=== PATIENT | female | born 1945 | race Two or more races ===

== ENCOUNTER 2016-10-03 20:51 | Inpatient (IN) | payer MEDICARE, OTHER ==
[~2016-10-03] VITALS: Ht 160 cm; Wt 81.2 kg
[~2016-10-03 20:51] MED LIST: AMLO5TAB2 PO; ASPI81TA2 PO; ATOR20TA PO; LORA2TAB PO; METO25TA6 PO
--- NOTE | 2016-10-03 20:55 | NUR ---
To bed 6 a 71 yo female bib family with c/o chest pressure x1 week. Per patient she was seen by a state farm agent and was prescribed with verapamil. However, upon taking this med home, patient has "feeling of anxiety," and palpitation, thus prompting patient to come to er. Upon arrival to er, patient is aaox4, denies chest pressure at this time. tele monitoring presents nsr with pvc's in bigeminy/trigeminy, couplet and runs of pvc's. Skin is warm and dry. Nondiaphoretic. Initiated comfort measures. Gowned. Awaiting for er md hanson.
--- NOTE | 2016-10-03 21:10 | NUR ---
Director Agency & Strategic Partnerships Jonoii at bedside for eval.
--- NOTE | 2016-10-03 21:18 | NUR ---
Carla tillman in [facility] - 10/03/16 at 2118 by JOHANNA cinetechnician at bedside.
[2016-10-03 21:29] LABS: BASOPHILS # (AUTO) 0.1 /CMM (0.0-0.2); EOSINOPHILS # (AUTO) 0.2 /CMM (0.0-0.7); EOSINOPHILS % (AUTO) 1.5 % (0.0-6.0); HEMATOCRIT 45 % (33-45); HEMOGLOBIN 15.4 g/dL (11.5-14.8); LYMPHOCYTES # (AUTO) 3.7 /CMM (0.8-4.8); LYMPHOCYTES % (AUTO) 27.8 % (20.0-44.0); MEAN CORPUSCULAR HEMOGLOBIN 30 PG (26.0-33.0); MEAN CORPUSCULAR HGB CONC 34 g/dl (31.0-36.0); MEAN CORPUSCULAR VOLUME 89 fL (82-100); MONOCYTES % (AUTO) 7.9 % (2.0-12.0); NEUTROPHILS # (AUTO) 8.2 /CMM (1.8-8.9); NEUTROPHILS % (AUTO) 61.8 % (43.0-81.0); PLATELET COUNT (AUTO) 187 /CMM (150-450); RDW COEFFICIENT OF VARIATION 12.4 (11.5-15.0); WHITE BLOOD COUNT (AUTO) 13.2 K/uL (4.3-11.0)
--- NOTE | 2016-10-03 21:29 | NUR ---
started a saline lock on the right ac g 20, blood drawn and sent to lab.
[2016-10-03 21:37] LABS: CALCIUM, SERUM 9.3 mg/dL (8.5-10.1); CARBON DIOXIDE 26 mmol/L (21-32); CHLORIDE 103 mmol/L (98-107); CREATININE 1.1 mg/dL (0.6-1.3); GLUCOSE 122 mg/dL (74-106); POTASSIUM 3.9 mmol/L (3.5-5.1); SODIUM SERUM 140 mmol/L (136-145); UREA NITROGEN, BLOOD 20 mg/dL (7-18)
[2016-10-03 21:40] LABS: INR 1.06 (0.87-1.13)
[2016-10-03 21:45] LABS: TROPONIN I < 0.017 ng/mL (0.00-0.056)
[2016-10-03 21:49] LABS: B-TYPE NATRIURETIC PEPTIDE 339 PG/ML (0-125)
[2016-10-03 22:15] VITALS: BP 146/65
--- NOTE | 2016-10-03 22:21 | NUR ---
EPIC PAGED, DR.SIMONA Clemente DRIVING SCHOOL INSTRUCTOR
--- NOTE | 2016-10-03 22:28 | NUR ---
CARDIOLOGY PAGED, ELECTRICAL AND INSTRUMENTATION MANAGER
--- NOTE | 2016-10-03 22:39 | NUR ---
CALLED NURSING SUP. FOR TELE BED
--- NOTE | 2016-10-03 22:58 | NUR ---
Report given to Jose LOZADA for yessenia.
[2016-10-03] MEDS ORDERED: ACETAMINOPHEN 325 MG TABLET PO PRN (23:00)
[2016-10-03] MEDS ORDERED: MORPHINE SULFATE INJ 2 MG/ML DISP.SYRIN IV PRN ×2 (23:00)
[2016-10-03] MEDS ORDERED: DOCUSATE SODIUM 100 MG CAPSULE PO PRN (23:00)
[2016-10-03] MEDS ORDERED: LORAZEPAM 1 MG TABLET PO PRN (23:00)
--- NOTE | 2016-10-03 23:18 | NUR ---
Transported to malu bed 111-1 via als protocol without incident noted.
[2016-10-03] MEDS ORDERED: METOPROLOL TARTRATE 50 MG TABLET ONE (23:25)
--- NOTE | 2016-10-03 23:40 | NUR ---
RN NOTES RECEIVED PX FROM ER VIA GURNEY, THEN TRANSFERRED TO BED, AWAKE, ALERT, ORIENTED X 3, AMBULATORY WITH STEADY GAIT, DAUGHTER AT BEDSIDE; HOOKED PX TO HEART MONITOR, MULTIPLE PVC'S NOTED WITH MULTIPLE CONTINUOUS RUNS OF 4-7 PVC'S; VITAL SIGNS WERE STABLE; PX DENIED PAIN, CHEST PAIN, SOB, DIZZINESS, PALPITATIONS, NO DIAPHORESIS, NO N/V; PIV ON RIGHT AC PATENT AND INTACT; SKIN INTACT; BELONGINGS GIVEN TO DAUGHTER. CALLED DR. WORTHINGTON AND INFORMED OF MULTIPLE EPISODES OF CONTINUOUS PVC'S MANY 4-7, METOPROLOL GIVEN PO. DISCUSSED PLAN OF CARE; PX AND DAUGHTER REFUSED PNEUMONIA VACCINE AND DVT PUMPS DESPITE HEALTH TEACHING/EDUCATION.
[2016-10-03] MEDS: METOPROLOL TARTRATE 50 MG TABLET PO SCH (23:44)
[2016-10-04] VITALS (7 sets, daily range): BP systolic 126–153; BP diastolic 56–72
[2016-10-04] MEDS ORDERED: ENOXAPARIN SODIUM 30 MG/0.3 ML DISP.SYRIN SQ SCH (01:00)
--- NOTE | 2016-10-04 04:30 | NUR ---
RN NOTES PX CONDITION UNCHANGED, NOTICED THAT WHEN PATIENT GETS UP AND WALKS TO THE BATHROOM, NUMBER OF PVC'S INCREASES, PLACED A BEDSIDE COMMODE AND INSTRUCTED TO AVOID STRAINING DURING BOWEL MOVEMENT; DESPITE RUNS OF PVC'S IN MULTIPLES OF 5-7, PX DENIED CHEST PAIN, SOB, N/V, DIZZINESS. HR 47-60 WITH STABLE BP.
--- NOTE | 2016-10-04 06:21 | NUR ---
RN NOTES CONDITION AND NEURO STATUS UNCHANGED; HR NOW 64 STILL WITH PVC'S BUT LESS EPISODES OF RUNS PVC'S >3'S; DENIED PAIN, CHEST PAIN, SOB, DIZZINESS; EARLY AM CARE PROVIDED; NO SKIN BREAKDOWN; PIV REMAINED INTACT AND PATENT. WILL ENDORSE TO NEXT RN.
[2016-10-04 06:36] LABS: BASOPHILS # (AUTO) 0.1 /CMM (0.0-0.2); BASOPHILS % (AUTO) 0.7 % (0.0-2.0); EOSINOPHILS # (AUTO) 0.2 /CMM (0.0-0.7); EOSINOPHILS % (AUTO) 1.7 % (0.0-6.0); HEMATOCRIT 44 % (33-45); HEMOGLOBIN 14.5 g/dL (11.5-14.8); LYMPHOCYTES # (AUTO) 3.1 /CMM (0.8-4.8); LYMPHOCYTES % (AUTO) 32.8 % (20.0-44.0); MEAN CORPUSCULAR HEMOGLOBIN 29 PG (26.0-33.0); MEAN CORPUSCULAR HGB CONC 33 g/dl (31.0-36.0); MEAN CORPUSCULAR VOLUME 89 fL (82-100); MONOCYTES # (AUTO) 0.7 /CMM (0.1-1.30); MONOCYTES % (AUTO) 7.9 % (2.0-12.0); NEUTROPHILS # (AUTO) 5.4 /CMM (1.8-8.9); NEUTROPHILS % (AUTO) 56.9 % (43.0-81.0); PLATELET COUNT (AUTO) 185 /CMM (150-450); RDW COEFFICIENT OF VARIATION 13.3 (11.5-15.0); RED BLOOD CELL COUNT(AUTO) 4.95 MIL/uL (4.0-5.2); WHITE BLOOD COUNT (AUTO) 9.4 K/uL (4.3-11.0)
[2016-10-04 06:46] LABS: INR 1.05 (0.87-1.13); PROTHROMBIN TIME 11.3 SECS (9.5-12.7)
--- NOTE | 2016-10-04 07:00 | NUR ---
Received pt in bed,no s/s of distress breathing even and unlabored.no c/o pain.breathing on 2lpm via nasal cannula.on tele monitoring s.b 55.i.v site cdi and patent. safety measures in place.bed in low and locked position.will continue to monitor for changes.
[2016-10-04 07:03] LABS: CALCIUM, SERUM 8.8 mg/dL (8.5-10.1); POTASSIUM 3.8 mmol/L (3.5-5.1)
[2016-10-04 07:19] LABS: PHOSPHORUS 4.4 mg/dL (2.5-4.9)
[2016-10-04 07:55] LABS: CANNABINOID, URINE NEGATIVE (NEGATIVE); PHENCYCLIDINE SCREEN,URINE NEGATIVE (NEGATIVE)
[2016-10-04 08:10] LABS: APPEARANCE,URINE CLEAR (CLEAR); BILIRUBIN,URINE NEGATIVE (NEGATIVE); BLOOD, URINE NEGATIVE Ery/uL (NEGATIVE); COLOR,URINE YELLOW (YELLOW); KETONES,URINE NEGATIVE (NEGATIVE); LEUKOCYTE ESTERASE ,URINE NEGATIVE (NEGATIVE); NITRITE, URINE NEGATIVE (NEGATIVE); PROTEIN,URINE NEGATIVE (NEGATIVE); UGLUCOSE NEGATIVE (NEGATIVE); UROBILINOGEN,URINE 0.2 EU/dL (0.2)
[2016-10-04] MEDS: METOPROLOL TARTRATE 50 MG TABLET PO SCH ×2 (08:59→16:06)
[2016-10-04] MEDS: ATORVASTATIN 10 MG TABLET PO SCH (08:59)
[2016-10-04] MEDS: ASPIRIN 81 MG TAB.CHEW PO SCH (08:59)
[2016-10-04] MEDS ORDERED: AMLODIPINE BESYLATE 5 MG TABLET PO SCH (09:00)
[2016-10-04] MEDS ORDERED: POTASSIUM CHLORIDE 20 MEQ TAB.PRT.SR PO ONE (14:21)
[2016-10-04] MEDS ORDERED: Magnesium 1GM/D5W 100ML PREMIX 100 ML IV SCH (14:22)
[2016-10-04] MEDS ORDERED: SECONDARY IV SET 1 EA INFUS.SET MC ONE (15:53)
[2016-10-04] MEDS ORDERED: IV SET PRIMARY PUMP SET 1 EA INFUS.SET MC ONE ×2 (16:00→23:58)
[2016-10-04] MEDS: VERAPAMIL HCL 80 MG TABLET PO SCH ×2 (16:05→21:40)
--- NOTE | 2016-10-04 19:29 | NUR ---
pt in stable condition. family present at bedside.no s/s of distress.all m.d orders noted and carried out.safety measures in place.
--- NOTE | 2016-10-04 19:30 | NUR ---
PROPELLER LAYOUT WORKER PT IN BED. FAMILY AT BEDSIDE. PT IS A/A/O X4. PT CONTINUES TO HAVE MULTIPLE PVC'S, ASYMPTOMATIC. LUNG SOUNDS CLEAR. BOWEL SOUNDS PRESENT. IV PATENT AND INTACT. PER MD PT TO REMAIN IN BED MOST OF THE TIME. INSTRUCTED PT TO CALL FOR ASSISTANCE AT ALL TIMES. BED IN LOW LOCKED POSITION. CALL LIGHT WITHIN REACH. WILL CONTINUE TO MONITOR.
[2016-10-04] MEDS ORDERED: ENOXAPARIN SODIUM 40 MG/0.4 ML DISP.SYRIN SQ SCH (21:00)
--- NOTE | 2016-10-04 21:50 | NUR ---
ASH HANDLER PT ADMITTED LAST NIGHT. MED RECON UPDATED JUST NOW.
[2016-10-04] MEDS ORDERED: AMLO5TAB2 PO (21:52)
[2016-10-04] MEDS ORDERED: LORA2TAB PO (21:52)
[2016-10-04] MEDS ORDERED: RAMI5CAP PO (21:52)
[2016-10-04] MEDS ORDERED: VERA120T8 PO (21:52)
[2016-10-04] MEDS ORDERED: ATEN25TA PO (21:52)
--- NOTE | 2016-10-04 22:50 | NUR ---
OIL DEVELOPER PT IS HAVING INCREASED BEATS OF VTACH UP TO 30 BEATS, UNSUSTAINED BUT MORE FREQUENT. PT REMAINS ASYMPTOMATIC. DURING DAY PT HAD ONLY UP TO [address] ROSS EXCHANGE CALLED. AWAITING CALL BACK.
--- NOTE | 2016-10-04 22:55 | NUR ---
MAIL TECHNICIAN DR NICHOLSON CALLED BACK. DISCUSSED SITUATION. DR NICHOLSON WILL CONTACT DR MORGAN AND DISCUSS CASE. WILL CALL ME BACK WITH PLAN OF CARE. AWAITING CALL BACK.
[2016-10-04] MEDS ORDERED: AMIODARONE 150 MG/3 ML VIAL IV ONE (23:57)
[2016-10-04] MEDS ORDERED: IV D5W 100 ML IV ONE (23:58)
[2016-10-05] VITALS: BP 144/96
[2016-10-05] MEDS ORDERED: AMIODARONE 150 MG in IV D5W 100 ML IV ONE ×2
[2016-10-05] MEDS ORDERED: AMIODARONE 900 MG in IV D5W 482 ML IV PRN ×2
[2016-10-05] MEDS ORDERED: AMIODARONE 150 MG/3 ML VIAL IV ONE
--- NOTE | 2016-10-05 | NUR ---
LIZETTE NICHOLSON CALLED BACK. ORDERED FOR AMIODARONE, PT IS NOT SUSTAINING VTACH BUT IS HAVING FREQUENT RUNS UP TO 35 BEATS.
[2016-10-05] MEDS ORDERED: IV D5W 500 ML IV ONE (00:10)
--- NOTE | 2016-10-05 00:30 | NUR ---
LIZETTE RN BOLUS COMPLETED, DRIP STARTED. PT IS RESTING. HR IS BRADYCARDIA. ICU BEEF CATTLE GRAZIER CALLED FOR ADVICE ON HOW TO HANDLE THIS CASE.
[2016-10-05 04:00] VITALS: BP 156/79
[2016-10-05] MEDS: VERAPAMIL HCL 80 MG TABLET PO SCH (05:00)
[2016-10-05 06:13] LABS: BASOPHILS # (AUTO) 0.1 /CMM (0.0-0.2); BASOPHILS % (AUTO) 0.6 % (0.0-2.0); EOSINOPHILS # (AUTO) 0.3 /CMM (0.0-0.7); EOSINOPHILS % (AUTO) 3.1 % (0.0-6.0); HEMATOCRIT 42 % (33-45); HEMOGLOBIN 13.9 g/dL (11.5-14.8); LYMPHOCYTES # (AUTO) 3.4 /CMM (0.8-4.8); LYMPHOCYTES % (AUTO) 33.6 % (20.0-44.0); MEAN CORPUSCULAR HEMOGLOBIN 29 PG (26.0-33.0); MEAN CORPUSCULAR HGB CONC 33 g/dl (31.0-36.0); MEAN CORPUSCULAR VOLUME 89 fL (82-100); MONOCYTES # (AUTO) 0.8 /CMM (0.1-1.30); MONOCYTES % (AUTO) 8.1 % (2.0-12.0); NEUTROPHILS # (AUTO) 5.5 /CMM (1.8-8.9); NEUTROPHILS % (AUTO) 54.6 % (43.0-81.0); PLATELET COUNT (AUTO) 173 /CMM (150-450); RDW COEFFICIENT OF VARIATION 13.7 (11.5-15.0); RED BLOOD CELL COUNT(AUTO) 4.72 MIL/uL (4.0-5.2); WHITE BLOOD COUNT (AUTO) 10.1 K/uL (4.3-11.0)
[2016-10-05 06:14] LABS: TROPONIN I < 0.017 ng/mL (0.00-0.056)
[2016-10-05 06:16] LABS: CALCIUM, SERUM 8.6 mg/dL (8.5-10.1); CARBON DIOXIDE 26 mmol/L (21-32); CHLORIDE 106 mmol/L (98-107); CREATININE 1.1 mg/dL (0.6-1.3); GLUCOSE 117 mg/dL (74-106); MAGNESIUM 2.3 mg/dL (1.8-2.4); PHOSPHORUS 4.5 mg/dL (2.5-4.9); SODIUM SERUM 141 mmol/L (136-145); UREA NITROGEN, BLOOD 19 mg/dL (7-18)
[2016-10-05 08:00] VITALS: BP 116/48
--- NOTE | 2016-10-05 08:00 | NUR ---
LIZETTE RN, patient received in bed alert oriented x4 resp unlabored no sob noted telemetry shows SR with freq.pvcs not sustaining V-T, is having frequent runs pvc's. MD was notified . on amiodaron drip at 0.5 mg /hr in to left hand daughter at bed side plan of care and safety discussed and verbalized understanding patient encouraged use of call light to make all needs known will continue to assess and evaluate call light with in reach
--- NOTE | 2016-10-05 09:00 | NUR ---
LIZETTE RN, patient sitting up in chair and no distress noted at present time
[2016-10-05 09:35] VITALS: BP 134/60
[2016-10-05] MEDS: ASPIRIN 81 MG TAB.CHEW PO SCH (09:42)
[2016-10-05] MEDS: ATORVASTATIN 10 MG TABLET PO SCH (09:43)
[2016-10-05] MEDS: METOPROLOL TARTRATE 50 MG TABLET PO SCH (09:44)
--- NOTE | 2016-10-05 10:00 | NUR ---
LIZETTE RN, patient back to bed and made patient comfortable will continue to assess and evaluate
[2016-10-05 12:00] VITALS: BP 123/77
--- NOTE | 2016-10-05 12:00 | NUR ---
LIZETTE RN , telemetry shows SB no signs of distress noted call light with in reach
--- NOTE | 2016-10-05 13:38 | NUR ---
LIZETTE RN,seen by independent jeweler and exam to patient no complaints offered at present time call light with in reach daughter at bed side
--- NOTE | 2016-10-05 13:51 | NUR ---
LIZETTE RN, amiodaron drip discontinue at present time as ordered
[2016-10-05] MEDS ORDERED: AMIODARONE HCL 200 MG TABLET PO SCH (14:00)
--- NOTE | 2016-10-05 14:00 | NUR ---
LIZETTE RN, amiodarone po given as ordered all discharge instructions given and verbalized understanding no c/o chest pain or distress noted at this time
[2016-10-05] MEDS ORDERED: METO50TA3 PO (14:09)
[2016-10-05] MEDS ORDERED: LORA2TAB PO (14:09)
[2016-10-05] MEDS ORDERED: AMIO400T4 PO (14:09)
[2016-10-05 15:00] VITALS: BP 124/74
--- NOTE | 2016-10-05 15:10 | NUR ---
LIZETTE RN, patient discharged home with all instructions patient will follow up with accompanied by her daughter condition satisfactory
== END 2016-10-05 15:00 | disposition home or self-care (01) | DRG 308 ==
LOC: ER 20:58 → TELE-TD 23:01 → TELE1 10-04 00:12 → TELE-TD 10-04 02:33 → TELE1 10-04 09:03 → TELE-TD 10-04 23:51
PROVIDERS: ADMIT Internal Medicine; ATTEND Internal Medicine
DX: I47.2 Ventricular tachycardia (principal); I50.33 Acute on chronic diastolic (congestive) heart failure; E44.0 Moderate protein-calorie malnutrition; D68.59 Other primary thrombophilia; I25.110 Atherosclerotic heart disease of native coronary artery with unstable angina pectoris; I11.0 Hypertensive heart disease with heart failure; I48.91 Unspecified atrial fibrillation; D72.829 Elevated white blood cell count, unspecified; E66.9 Obesity, unspecified; Z68.31 Body mass index [BMI] 31.0-31.9, adult; E78.5 Hyperlipidemia, unspecified; I49.3 Ventricular premature depolarization
CPT/HCPCS: 36415; 71010-TC; 80048-TC; 80061-TC; 80305; 81000-TC; 82150-TC; 83690-TC; 83735-TC; 83880; 84100-TC; 84443-TC; 84484-TC; 85025-TC; 85610-TC; 85730-TC; 87040-TC; 87081-TC; 87086-TC; 93307-TC; A4606; J0282; J1650; J3475; J7060; Z7610

== ENCOUNTER 2022-08-03 16:38 | Inpatient (IN) | payer MEDICARE, OTHER ==
[~2022-08-03] VITALS: Ht 162.6 cm; Wt 72.1 kg
[~2022-08-03 16:38] MED LIST changes: +AMIO400T5 PO; +AMLO-212 PO; -AMLO5TAB2 PO; +ASPI-1169 PO; -ASPI81TA2 PO; -ATOR20TA PO; -METO25TA6 PO; +METO50TA16 PO; +RAMI5CAP66 PO
[2022-08-03] MEDS ORDERED: IV NS 0.9% 500 ML BAG IV ONE (17:30)
[2022-08-03] MEDS ORDERED: ONDANSETRON HCL/PF 4 MG/2 ML VIAL IVP ONE ×2 (17:30→20:00)
[2022-08-03 17:39] LABS: BASOPHILS % (AUTO) 0.1 % (0.0-2.0); EOSINOPHILS % (AUTO) 1.3 % (0.0-6.0); HEMATOCRIT 46 % (33-45); LYMPHOCYTES # (AUTO) 0.7 K/uL (0.8-4.8); LYMPHOCYTES % (AUTO) 5.1 % (20.0-44.0); MEAN CORPUSCULAR HGB CONC 33 g/dl (31.0-36.0); MEAN CORPUSCULAR VOLUME 90 fL (82-100); MONOCYTES # (AUTO) 0.6 K/uL (0.1-1.30); MONOCYTES % (AUTO) 4.2 % (2.0-12.0); NEUTROPHILS % (AUTO) 89.3 % (43.0-81.0); PLATELET COUNT (AUTO) 249 K/uL (150-450); RED BLOOD CELL COUNT(AUTO) 5.12 MIL/uL (4.0-5.2); WHITE BLOOD COUNT (AUTO) 14.6 K/uL (4.3-11.0)
[2022-08-03 17:58] LABS: CALCIUM, SERUM 9.4 mg/dL (8.5-10.1); CARBON DIOXIDE 23 mmol/L (21-32); CHLORIDE 106 mmol/L (98-107); CREATININE 1.3 mg/dL (0.6-1.3); GLUCOSE 136 mg/dL (74-106); POTASSIUM 3.2 mmol/L (3.5-5.1); SODIUM SERUM 140 mmol/L (136-145); UREA NITROGEN, BLOOD 13 mg/dL (7-18)
[2022-08-03 18:05] LABS: ALANINE AMINOTRANSFERASE 29 U/L (12-78); ALBUMIN 3.9 g/dL (3.4-5.0); ALKALINE PHOSPHATASE 50 U/L (46-116); ASPARTATE AMINOTRANSFERASE 24 U/L (15-37); BILIRUBIN,DIRECT 0.2 mg/dL (0.0-0.2); BILIRUBIN,TOTAL 0.4 mg/dL (0.2-1.0); LIPASE 887 U/L (73-393); TOTAL PROTEIN, SERUM 8.2 g/dL (6.4-8.2)
[2022-08-03] MEDS ORDERED: ONDANSETRON HCL/PF 4 MG/2 ML VIAL ONE ×2 (18:11→20:13)
[2022-08-03 19:34] LABS: BILIRUBIN,URINE NEGATIVE (NEGATIVE); COLOR,URINE YELLOW (YELLOW); LEUKOCYTE ESTERASE ,URINE NEGATIVE (NEGATIVE); NITRITE, URINE NEGATIVE (NEGATIVE); PH,URINE 5.5 (5.0-8.0); PROTEIN,URINE NEGATIVE (NEGATIVE); UGLUCOSE NEGATIVE (NEGATIVE); UROBILINOGEN,URINE 0.2 EU/dL (0.2)
[2022-08-03 19:46] LABS: RBC,URINE 0-2 /HPF (0-2); WBC,URINE 0-2 /HPF (0-3)
[2022-08-03 19:47] LABS: BACTERIA,URINE None seen /HPF (None Seen); SQUAMOUS EPITHELIAL CELL,UR 0-2 /HPF (None Seen)
--- NOTE | 2022-08-03 19:56 | NUR ---
US TECH AT PT'S BEDSIDE
[2022-08-03] MEDS ORDERED: MORPHINE SULFATE INJ 2 MG/ML DISP.SYRIN IV ONE (20:00)
[2022-08-03] MEDS ORDERED: MORPHINE SULFATE INJ 4 MG/ML DISP.SYRIN ONE (20:14)
--- NOTE | 2022-08-03 20:23 | NUR ---
PATIENT AAOX4. REFUSED MORPHINE IV. SHE SAID SHE IS NOT IN PAIN BUT WITH LITTLE DISCOMFORT
[2022-08-03] MEDS ORDERED: Z GUARD REMEDY 4 OZ OINT TP PRN (20:30)
[2022-08-03] MEDS ORDERED: hydrALAZINE HCL IV 20 MG VIAL IV PRN (20:30)
[2022-08-03] MEDS ORDERED: ACETAMINOPHEN 325 MG TABLET PO PRN (20:30)
[2022-08-03] MEDS ORDERED: MORPHINE SULFATE INJ 2 MG/ML DISP.SYRIN IV PRN (20:30)
[2022-08-03] MEDS ORDERED: ONDANSETRON HCL/PF 4 MG/2 ML VIAL IVP PRN (20:30)
[2022-08-03] MEDS ORDERED: MAG HYDROX/AL HYDROX/SIMETH 30 ML UDC PO PRN (20:30)
[2022-08-03] MEDS ORDERED: MAGNESIUM HYDROXIDE 30 ML UDC PO PRN (20:30)
--- NOTE | 2022-08-03 20:36 | NUR ---
COVID SWAB DONE AND SENT TO LAB
--- NOTE | 2022-08-03 21:39 | NUR ---
BED 309-2
--- NOTE | 2022-08-03 22:23 | NUR ---
PATIENT TRANSFERRED TO ROOM VIA STRETCHER
--- NOTE | 2022-08-03 22:23 | NUR ---
REPORT GIVEN TO NEVILLE DANGELO MA
[2022-08-03] MEDS: IV D5/0.45 NACL 1,000 ML IV PRN (22:48)
[2022-08-03 22:50] VITALS: BP 127/62
--- NOTE | 2022-08-03 23:00 | NUR ---
MS SECTION SUPERVISOR NOTE RECEIVED PATIENT FROM ER VIA GURNEY. PATIENT IS AMBULATORY; AWAKE, ALERT AND ORIENTED X 4. CAMEROONIAN SPEAKING. ON ROOM AIR; TOLERATING WELL. BREATHING EVEN AND NONLABORED. NOT IN ANY FORM OF RESPIRATORY OR CARDIAC DISTRESS NOTED. DENIES ANY PAIN OR DISCOMFORT AT THIS TIME. WITH IV ACCESS ON RIGHT AC 20g: PATENT AND INTACT INFUSING WITH D5 1/2 NS 1L REGULATED @ 100 ML/HR; FLUSHES WELL. BODY AND SKIN ASSESSMENT DONE; SKIN IS INTACT. ORIENTED TO STAFF, ROOM AND UNIT. ABLE TO MAKE NEEDS KNOWN. SAFETY MEASURES IMPLEMENTED: CALL LIGHT AND TABLE WITHIN REACH, SIDE RAILS UP X 2, BED IN LOWEST LOCKED POSITION. WILL CONTINUE PLAN OF CARE.
[2022-08-04] MEDS: POTASSIUM CL. PREMIX PERIPHER. 50 ML IV SCH ×3 (01:13→03:23)
[2022-08-04] MEDS: ENOXAPARIN SODIUM 30 MG/0.3 ML DISP.SYRIN SQ SCH ×2 (01:18→21:44)
[2022-08-04] MEDS ORDERED: METRONIDAZOLE 500MG/ NS 100ML 500 MG in PREMIX 1 EA IV SCH (03:00)
[2022-08-04] MEDS ORDERED: METRONIDAZOLE 500MG/ NS 100ML 100 ML IV ONE (04:37)
[2022-08-04 05:46] LABS: BASOPHILS % (AUTO) 0.4 % (0.0-2.0); EOSINOPHILS % (AUTO) 1.9 % (0.0-6.0); HEMATOCRIT 38 % (33-45); HEMOGLOBIN 12.8 g/dL (11.5-14.8); LYMPHOCYTES # (AUTO) 1.4 K/uL (0.8-4.8); MEAN CORPUSCULAR HGB CONC 34 g/dl (31.0-36.0); MEAN CORPUSCULAR VOLUME 89 fL (82-100); MONOCYTES # (AUTO) 0.6 K/uL (0.1-1.30); MONOCYTES % (AUTO) 7.9 % (2.0-12.0); NEUTROPHILS # (AUTO) 5.3 K/uL (1.8-8.9); NEUTROPHILS % (AUTO) 70.8 % (43.0-81.0); PLATELET COUNT (AUTO) 222 K/uL (150-450); WHITE BLOOD COUNT (AUTO) 7.5 K/uL (4.3-11.0)
[2022-08-04 05:55] LABS: CALCIUM, SERUM 8.5 mg/dL (8.5-10.1); CREATININE 1.3 mg/dL (0.6-1.3); MAGNESIUM 1.8 mg/dL (1.8-2.4); PHOSPHORUS 3.5 mg/dL (2.5-4.9); POTASSIUM 3.7 mmol/L (3.5-5.1)
[2022-08-04 06:25] LABS: THYROID STIMULATING HORMONE 1.394 uIU/mL (0.358-3.74)
[2022-08-04 07:00] VITALS: BP 144/65
--- NOTE | 2022-08-04 07:00 | NUR ---
MS RN CLOSING NOTE PATIENT IN BED; AWAKE, A/O X 4. STABLE ON ROOM AIR. BREATHING EQUAL AND UNLABORED. DENIES ANY PAIN OR DISCOMFORT AT THIS TIME. WITH IV ACCESS ON RIGHT AC 20g; PATENT AND INTACT INFUSING WITH D5 1/2 NS 1L REGULATED @ 100 ML/HR; FLUSHES WELL. SAFETY PRECAUTIONS IN PLACE: CALL LIGHT AND TABLE WITHIN REACH, SIDE RAILS UP X 3, BED IN LOWEST LOCKED POSITION. ENDORSED TO MORNING SHIFT FOR MILLER.
--- NOTE | 2022-08-04 07:30 | NUR ---
MS RN OPENING NOTES RECEIVED PATIENT ON BED AWAKE AND A/O X4. ON ROOM AIR TOLERATING WELL. NO SOB NOTED. NOT IN DISTRESS. WITH COMPLAINTS OF ABDOMINAL PAIN BUT TOLERABLE AT THIS TIME. WITH IV ACCESS AT THE RIGHT AC G20 WITH IVF D5 1/2NS AT 100ML/HR INFUSING WELL. PATIENT IS ON NPO FOR ACUTE PANCREATITIS DIAGNOSIS. SAFETY MEASURES IN PLACED. CALL LIGHT WITHIN REACH. BED ON LOWEST LOCKED POSITION, SIDE RAILS UP X2. WILL CONTINUE TO MONITOR.
--- NOTE | 2022-08-04 07:39 | NUR ---
MS TAPE MACHINE TAILER NOTE RECEIVED PATIENT FROM ER VIA [facility]. PATIENT IS AMBULATORY; AWAKE, ALERT AND ORIENTED X 4. MOHAWK SPEAKING. ON ROOM AIR; TOLERATING WELL. BREATHING EVEN AND NONLABORED. NOT IN ANY FORM OF RESPIRATORY OR CARDIAC DISTRESS NOTED. DENIES ANY PAIN OR DISCOMFORT AT THIS TIME. WITH IV ACCESS ON RIGHT AC 20g: PATENT AND INTACT INFUSING WITH D5 1/2 NS 1L REGULATED @ 100 ML/HR; FLUSHES WELL. BODY AND SKIN ASSESSMENT DONE; SKIN IS INTACT. ORIENTED TO STAFF, ROOM AND UNIT. ABLE TO MAKE NEEDS KNOWN. SAFETY MEASURES IMPLEMENTED: CALL LIGHT AND TABLE WITHIN REACH, SIDE RAILS UP X 2, BED IN LOWEST LOCKED POSITION. WILL CONTINUE PLAN OF CARE. Addendum: 08/04/22 at 0744 by ANTOLIN RENEE RN WRONG TIMING ENTRY
[2022-08-04] MEDS: AMIODARONE HCL 200 MG TABLET PO SCH ×2 (08:47→16:57)
[2022-08-04] MEDS: LISINOPRIL (10MG) 10 MG TABLET PO SCH (08:47)
[2022-08-04] MEDS: PANTOPRAZOLE 40 MG VIAL IV SCH (08:47)
[2022-08-04] MEDS: METOPROLOL TARTRATE 50 MG TABLET PO SCH ×2 (08:48→16:57)
[2022-08-04] MEDS: ASPIRIN 81 MG TAB.CHEW PO SCH (08:48)
[2022-08-04] MEDS: AMLODIPINE BESYLATE 5 MG TABLET PO SCH ×2 (08:48→16:57)
[2022-08-04] MEDS: LORAZEPAM 1 MG TABLET PO SCH ×2 (08:48→16:56)
[2022-08-04] MEDS: METRONIDAZOLE 500MG/ NS 100ML 500 MG in PREMIX 1 EA IV SCH ×2 (12:05→20:33)
[2022-08-04] MEDS: IV D5/0.45 NACL 1,000 ML IV PRN (15:12)
[2022-08-04 16:00] VITALS: BP 111/49
--- NOTE | 2022-08-04 18:28 | NUR ---
MS RN CLOSING NOTES PATIENT ON BED AWAKE AND A/O X4. ON ROOM AIR TOLERATING WELL. NO SOB NOTED. NOT IN DISTRESS. WITH COMPLAINTS OF ABDOMINAL PAIN BUT TOLERABLE AT THIS TIME. WITH IV ACCESS AT THE RIGHT AC G20 SALINE LOCKED, PATENT AND INTACT AND AT THE RIGHT HAND G22 WITH IVF D5 1/2NS AT 100ML/HR INFUSING WELL. PATIENT IS STILL ON NPO FOR ACUTE PANCREATITIS DIAGNOSIS. DUE MEDS GIVEN. SAFETY MEASURES IN PLACED. CALL LIGHT WITHIN REACH. BED ON LOWEST LOCKED POSITION, SIDE RAILS UP X2. WILL ENDORSE TO NEXT SHIFT FOR MILLER.
--- NOTE | 2022-08-04 19:45 | NUR ---
MS RN OPENING NOTE PATIENT SLEEPING IN BED, EASILY AWAKENED, PATIENT ALERT/ORIENTED X 4, PRIMARILY KHMER SPEAKING, ABLE TO MAKE NEEDS KNOWN. PATIENT STABLE ON RA, NO S/S OF DISTRESS OR SOB NOTED, BREATHING EVEN AND UNLABORED. IV ACCESS ON RIGHT HAND #22G INTACT AND INFUSING D51/2 NS @ 100 ML/HR. PATIENT NPO. SAFETY MEASURES IN PLACE: CALL LIGHT WITHIN REACH, SIDE RAILS UP X 2, BED LOCKED IN LOWEST POSITION, HOB ELEVATED, BED ALARM ON. WILL CONTINUE TO MONITOR PATIENT
[2022-08-04 20:00] VITALS: BP 133/60
[2022-08-05] MEDS: IV D5/0.45 NACL 1,000 ML IV PRN (03:30)
[2022-08-05] MEDS: METRONIDAZOLE 500MG/ NS 100ML 500 MG in PREMIX 1 EA IV SCH ×2 (04:38→13:14)
[2022-08-05 05:57] LABS: BILIRUBIN,URINE NEGATIVE (NEGATIVE); COLOR,URINE YELLOW (YELLOW); LEUKOCYTE ESTERASE ,URINE NEGATIVE (NEGATIVE); NITRITE, URINE NEGATIVE (NEGATIVE); PH,URINE 5.5 (5.0-8.0); PROTEIN,URINE NEGATIVE (NEGATIVE); UGLUCOSE NEGATIVE (NEGATIVE); UROBILINOGEN,URINE 0.2 EU/dL (0.2)
--- NOTE | 2022-08-05 06:17 | NUR ---
MS RN CLOSING NOTE PATIENT SLEEPING IN BED, EASILY AWAKENED, PATIENT ALERT/ORIENTED X 4, PRIMARILY [place] SPEAKING, ABLE TO MAKE BASIC NEEDS KNOWN. PATIENT STABLE ON RA, NO S/S OF DISTRESS OR SOB NOTED, BREATHING EVEN AND UNLABORED. IV ACCESS ON RIGHT HAND #22G INTACT AND INFUSING D51/2 NS @ 100 ML/HR, RAC #20G IV ACCESS INTACT AND SALINE LOCKED. MEDICATIONS GIVEN ORDERED, PT NEEDS MET THROUGHOUT SHIFT, PATIENT AMBULATED TO BATHROOM WITH STEADY GAIT, NO BM THIS SHIFT FOR STOOL SAMPLE, PT KEPT NPO. SAFETY MEASURES IN PLACE: CALL LIGHT WITHIN REACH, SIDE RAILS UP X 2, BED LOCKED IN LOWEST POSITION, HOB ELEVATED, BED ALARM ON. WILL ENDORSE TO DAYSHIFT RN FOR CONTINUITY OF CARE
--- NOTE | 2022-08-05 07:35 | NUR ---
MS RN OPENING NOTES PATIENT IN BED ALERT ORIENTED X 4, NO ACUTE DISTRESS NOTED, BREATHING UNLABORED. NO SOB NOTED. IV ACCESS PATENT AND INTACT, NO REDNESS, NO SWELLING NOTED. SAFETY MEASURES IN PLACE, CALL LIGHT WITHIN REACH. WILL CONTINUE TO MONITOR ACCORDINGLY
[2022-08-05 08:00] VITALS: BP 112/56
[2022-08-05] MEDS: PANTOPRAZOLE 40 MG VIAL IV SCH (09:07)
[2022-08-05] MEDS: ASPIRIN 81 MG TAB.CHEW PO SCH ×2 (10:50→10:53)
[2022-08-05] MEDS: LISINOPRIL (10MG) 10 MG TABLET PO SCH (10:53)
[2022-08-05] MEDS: AMIODARONE HCL 200 MG TABLET PO SCH ×2 (10:53→17:40)
[2022-08-05] MEDS: AMLODIPINE BESYLATE 5 MG TABLET PO SCH ×2 (10:54→17:40)
[2022-08-05] MEDS: LORAZEPAM 1 MG TABLET PO SCH ×2 (10:54→17:00)
[2022-08-05] MEDS: METOPROLOL TARTRATE 50 MG TABLET PO SCH ×2 (10:54→17:40)
[2022-08-05 16:07] VITALS: BP 117/55
[2022-08-05 17:40] VITALS: BP 124/60
--- NOTE | 2022-08-05 18:40 | NUR ---
MS CAR FERRY MASTER NOTES PATIENT DISCHARGE HOME WITH STABLE VITAL SIGNS., NO ACUTE DISTRESS NOTED, BREATHING UNLABORED. DENIED ANY PAIN. DISCHARGE INSTRUCTIONS GIVEN TO THE PATIENT AND DAUGHTER KELLY INCLUDING FOLLOW UP APPOINTMENT WITH PRIMARY DOCTOR, VERBALIZED UNDERSTANDING. ALL BELONGINGS ACCOUNTED FOR. IV ACCESS REMOVED, NO REDNESS, NO SWELLING, NO BLEEDING NOTED. ALL BELONGINGS ACCOUNTED FOR. SKIN IS INTACT. ASSISTED TO THE LOBBY , PICKED UP VIA PRIVATE CAR ACCOMPANIED BY DAUGHTER IN STABLE CONDITION.
== END 2022-08-05 18:30 | disposition home or self-care (01) | DRG 439 ==
LOC: ER 16:53 → MED 22:00
PROVIDERS: ADMIT Registered Nurse; ATTEND Nurse Practitioner Acute Care
DX: K85.90 Acute pancreatitis without necrosis or infection, unspecified (principal); I48.20 Chronic atrial fibrillation, unspecified; E87.6 Hypokalemia; E66.9 Obesity, unspecified; F41.9 Anxiety disorder, unspecified; I10 Essential (primary) hypertension; Z79.82 Long term (current) use of aspirin; I25.10 Atherosclerotic heart disease of native coronary artery without angina pectoris; Z79.01 Long term (current) use of anticoagulants; K76.0 Fatty (change of) liver, not elsewhere classified; K57.30 Diverticulosis of large intestine without perforation or abscess without bleeding; Z68.27 Body mass index [BMI] 27.0-27.9, adult; Z82.49 Family history of ischemic heart disease and other diseases of the circulatory system; R19.7 Diarrhea, unspecified
CPT/HCPCS: 36415; 71045-TC; 76700-TC; 80048-TC; 80076-TC; 81001; 82962-TC; 83690-TC; 83735-TC; 84100-TC; 84443-TC; 84484-TC; 85025-TC; 85730-TC; 87081-TC; A4216; A4223; C9113; C9803; G0378; J1650; J2270; J2405; J3480; J3490; J7040